=== PATIENT | male | born 1950 | race Two or more races ===

== ENCOUNTER → 2018-03-20 | Outpatient (CLI) | payer MEDICARE, OTHER ==
[~2018-03-20] MED LIST: METOPROLOL 50 MG TAB PO
[2018-03-20] MEDS: METOPROLOL 100 MG TAB (09:14)
[2018-03-20] MEDS: NITROGLYCERIN AEROSOL (4.9 GM) (10:18)
[2018-03-20] MEDS: IOHEXOL 100 ML (10:26)
[2018-03-20] MEDS: SOD CHLORIDE 0.9% 100 ML (10:26)
== END | disposition home or self-care (01) ==
LOC: C/S 07:56
DX: E11.8 Type 2 diabetes mellitus with unspecified complications (principal); R94.39 Abnormal result of other cardiovascular function study
CPT/HCPCS: 75571; 75574

== ENCOUNTER 2018-04-04 07:07 | Day surgery (SDC) | payer MEDICARE, OTHER ==
[2018-04-04 07:46] LABS: ADD MAN DIFF? NO
[2018-04-04 07:49] LABS: BASOPHILS % 0.3 % (0.0-2.0); EOSINOPHILS # 0.1 10^3/ul (0.0-0.5); EOSINOPHILS % 1.6 % (0.0-7.0); HEMATOCRIT 38.9 % (42.0-52.0); HEMOGLOBIN 13.4 g/dl (14.0-18.0); LYMPHOCYTES # 1.4 10^3/ul (0.8-2.9); LYMPHOCYTES % 24.6 % (15.0-51.0); MEAN CORPUSCULAR HEMOGLOBIN 32.1 pg (29.0-33.0); MEAN CORPUSCULAR HGB CONC 34.4 g/dl (32.0-37.0); MEAN CORPUSCULAR VOLUME 93.3 fl (82.0-101.0); MEAN PLATELET VOLUME 10.4 fl (7.4-10.4); MONOCYTE # 0.4 10^3/ul (0.3-0.9); MONOCYTES % 7.5 % (0.0-11.0); NEUTROPHIL # 3.8 10^3/ul (1.6-7.5); NEUTROPHILS % 65.7 % (39.0-77.0); PLATELET COUNT 196 10^3/UL (140-415); RED BLOOD COUNT 4.17 10^6/ul (4.70-6.10); RED CELL DISTRIBUTION WIDTH 12.8 % (11.5-14.5)
[2018-04-04 07:49] LABS: WHITE BLOOD COUNT 5.7 10^3/ul (4.8-10.8)
[2018-04-04 08:08] LABS: ANION GAP 8 (5-13); BLOOD UREA NITROGEN 12 mg/dl (7-20); CARBON DIOXIDE 27 mmol/L (21-31); CHLORIDE 107 mmol/L (97-110); CHOL/HDL RATIO 3.3 RATIO; CHOLESTEROL 142 mg/dl (100-200); CREATININE 1.02 mg/dl (0.61-1.24); Estimated GFR > 60 mL/min (>60); GLUCOSE 159 mg/dl (70-220); HDL CHOLESTEROL 43 mg/dl (31-75); LDL CHOLESTEROL,CALCULATED 65 mg/dl; POTASSIUM 4.6 mmol/L (3.5-5.1); SODIUM 142 mmol/L (135-144); TRIGLYCERIDES 171 mg/dl (0-149)
[2018-04-04 08:11] LABS: INR 1.22; PROTIME 15.5 Sec (11.9-14.9); PT RATIO 1.2
[2018-04-04 08:12] LABS: PARTIAL THROMBOPLASTIN TIME 29.8 Sec (23.0-35.0)
[2018-04-04 08:13] LABS: CALCIUM 10.3 mg/dl (8.4-10.2)
[2018-04-04] MEDS ORDERED: MIDAZOLAM 1 MG/ML 2 ML INJ (08:47)
[2018-04-04] MEDS ORDERED: NITROGLYCERIN (IC) 100 MCG/ML INJ (08:47)
[2018-04-04] MEDS ORDERED: FENTAnyl 50 MCG/ML VIAL (08:47)
[2018-04-04] MEDS ORDERED: IODIXANOL LOCM 100 ML BTL (08:47)
[2018-04-04] MEDS ORDERED: HEPARIN 1000 UNITS/ML 10 ML INJ (08:47)
[2018-04-04] MEDS ORDERED: VERAPAMIL 5 MG INJ (08:47)
[2018-04-04] MEDS ORDERED: LIDOCAINE 1% (MDV) 20 ML INJ (08:47)
[2018-04-04] MEDS ORDERED: PHENYLephrine 20MG IN 250 ML 0 ML (10:00)
[2018-04-04] MEDS ORDERED: NORepinephrine 8MG/250 ML (PMX 250 ML (10:05)
[2018-04-04] MEDS ORDERED: SOD CHLORIDE 0.9% 1,000 ML IV (10:15)
[2018-04-04] MEDS ORDERED: morphine 2 MG INJ IV (10:30)
[2018-04-04] MEDS ORDERED: ACETAMINOPHEN 325 MG TAB PO (10:30)
[2018-04-04] MEDS ORDERED: AL HYDROX/MG HYDROX/SIMETH 30 ML CUP PO (10:30)
[2018-04-04] MEDS ORDERED: ONDANSETRON 4 MG INJ IV (10:30)
== END 2018-04-04 15:05 | disposition home or self-care (01) ==
LOC: SDS 07:07
DX: I87.2 Venous insufficiency (chronic) (peripheral) (principal); I10 Essential (primary) hypertension; E78.00 Pure hypercholesterolemia, unspecified; I65.23 Occlusion and stenosis of bilateral carotid arteries; I34.0 Nonrheumatic mitral (valve) insufficiency; E11.9 Type 2 diabetes mellitus without complications
CPT/HCPCS: 71045; 80048; 80061; 82962; 85025; 85610; 85730; 93005; 93458